=== PATIENT | female | born 1995 | race American Indian/Alaskan Native ===

== ENCOUNTER 2016-11-23 23:58 | Emergency (ER) | payer MEDICAID ==
[2016-11-24 01:00] LABS: Basophils % (Auto) 0.4 % (0.0-1.8); Hematocrit 39.7 % (30.3-42.9); Hemoglobin 13.8 gm/dl (10.1-14.3); Mean Corpuscular HGB Conc 35 % (30-34); Mean Corpuscular Hemoglobin 31 pg (28-32); Mean Corpuscular Volume 89 fl (79-97); Platelet Count 271 K/mm3 (140-440); Red Blood Count 4.44 M/mm3 (3.65-5.03); Red Cell Distribution Width 12.4 % (13.2-15.2); White Blood Count 13.7 K/mm3 (4.5-11.0)
[2016-11-24 01:14] LABS: Bacteria,Urine 2+ /HPF (Negative); Bilirubin,Urine NEG (Negative); Blood,Urine SM (Negative); Ketones,Urine TR mg/dL (Negative); Leukocyte Esterase,Urine LG (Negative); Mucus,Urine FEW /HPF; Nitrite,Urine POS (Negative); Urobilinogen,Urine < 2.0 mg/dL (<2.0)
[2016-11-24 01:15] LABS: WBC,Urine > 182.0 /HPF (0.0-6.0)
[2016-11-24 01:21] LABS: Alanine Aminotransferase 20 units/L (7-56); Albumin 4.5 g/dL (3.9-5); Alkaline Phosphatase 70 units/L (35-129); Anion Gap 22 mmol/L; Blood Urea Nitrogen 8 mg/dL (7-17); Calcium 9.5 mg/dL (8.4-10.2); Carbon Dioxide 23 mmol/L (22-30); Chloride 93.1 mmol/L (98-107); Glucose 120 mg/dL (65-100); Lipase 17 units/L (13-60); Potassium 3.6 mmol/L (3.6-5.0); Sodium 134 mmol/L (137-145); Total Protein 8.8 g/dL (6.3-8.2)
[2016-11-24] MEDS ORDERED: TORADOL IV ONE (01:38)
[2016-11-24] MEDS ORDERED: NACL 0.9% 1000 ML 1,000 ML IV ONE (01:38)
[2016-11-24] MEDS ORDERED: ZOFRAN IV ONE (01:38)
[2016-11-24] MEDS ORDERED: ROCEPHIN/NS 1 GM/50 ML 1 GM/50 ML BAG IV ONE (01:38)
--- NOTE | 2016-11-24 02:04 | Emergency Department Report ---
HPI - General Chief Complaint: Abdominal Pain Time Seen by Provider: 11/24/16 01:32 - HPI HPI: Room 24 The patient is a 21-year-old female presenting with a chief complaint bilateral flank pain. The patient states her symptoms began 3 days ago with left flank pain. Coughs is both flanks and she complains of throbbing diffuse abdominal pain. Patient denies dysuria or hematuria. Patient denies fever. Patient admits to nausea vomiting and denied having constipation. Patient states she took a liquid laxative yesterday evening though she was not constipated because she believed it would help her pain. The patient states she developed loose stools after taking the laxative. Location: Bilateral flanks Duration: 3 Days Quality: Throbbing Severity: Moderate Modifying factors: [see above] Context: [see above] Mode of transportation: The patient drove herself to the emergency department and there are no visitors present ED Past Medical Hx - Past Medical History Previous Medical History?: No - Surgical History Past Surgical History?: No - Family History Family history: no significant - Social History Smoking Status: Never Smoker Substance Use Type: None (denies illicit drug use) - Medications Home Medications: Home Medications Medication Instructions Recorded Confirmed Last Taken Type metroNIDAZOLE [Flagyl] 500 mg PO BID #14 tablet 11/16/14 Unknown Rx Nitrofurantoin [place]/M-Cryst 100 mg PO Q12HR #14 capsule 04/18/15 Unknown Rx [Macrobid CAP] Promethazine [Phenergan TAB] 25 mg PO Q8HR PRN #21 tab 04/18/15 Unknown Rx Ciprofloxacin HCl [Ciprofloxacin 500 mg PO Q12HR #20 tab 11/24/16 Unknown Rx TAB] HYDROcodone/APAP 5-325 [[place] 1 - 2 each PO Q6HR PRN #14 tablet 11/24/16 Unknown Rx 5/325] Ibuprofen [Motrin 800 MG tab] 800 mg PO Q8HR PRN #20 tablet 11/24/16 Unknown Rx Promethazine [Phenergan TAB] 25 mg PO Q6HR PRN #20 tab 11/24/16 Unknown Rx Promethazine [Phenergan] 25 mg LA Q6HR PRN #5 supp.rect 11/24/16 Unknown Rx ED Review of Systems ROS: Stated complaint: ABD PAIN, BACK PAIN, HEADACHE Other details as noted in HPI Comment: All other systems reviewed and negative Constitutional: denies: chills, fever Eyes: denies: eye pain, eye discharge, vision change ENT: denies: ear pain, throat pain Respiratory: denies: cough, shortness of breath, wheezing Cardiovascular: denies: chest pain, palpitations Endocrine: no symptoms reported Gastrointestinal: abdominal pain, nausea, vomiting. denies: constipation Genitourinary: denies: urgency, dysuria, discharge Musculoskeletal: denies: back pain, joint swelling, arthralgia Skin: denies: rash, lesions Neurological: denies: headache, weakness, paresthesias Psychiatric: denies: anxiety, depression Hematological/Lymphatic: denies: easy bleeding, easy bruising Physical Exam - Physical Exam Vital Signs: Vital Signs 11/24/16 00:25 Temperature 98.8 F Pulse Rate 99 H Respiratory 14 Rate Blood Pressure 125/89 [Right] O2 Sat by Pulse 99 Oximetry Physical Exam: GENERAL: The patient is well-developed well-nourished female lying on stretcher not appearing to be in acute distress. [] HEENT: Normocephalic. Atraumatic. Extraocular motions are intact. Patient has moist mucous membranes. NECK: Supple. Trachea midline CHEST/LUNGS: Clear to auscultation. There is no respiratory distress noted. HEART/CARDIOVASCULAR: Regular. There is no tachycardia. There is no gallop rub or murmur. ABDOMEN: Abdomen is soft, without tenderness to palpation in the left upper quadrant, left lower quadrant or right lower quadrant. There is mild discomfort to palpation in the right upper quadrant. Patient has normal bowel sounds. There is no abdominal distention. SKIN: There is no rash. There is no edema. There is no diaphoresis. NEURO: The patient is awake, alert, and oriented. The patient is cooperative. The patient has normal speech MUSCULOSKELETAL: There is bilateral CVA tenderness. There is no evidence of acute injury. ED Course Vital Signs 11/24/16 00:25 Temperature 98.8 F Pulse Rate 99 H Respiratory 14 Rate Blood Pressure 125/89 [Right] O2 Sat by Pulse 99 Oximetry ED Medical Decision Making - Lab Data Result diagrams: 11/24/16 00:44 11/24/16 00:44 Laboratory Tests 11/24/16 11/24/16 11/24/16 00:44 00:44 00:44 WBC 13.7 H RBC 4.44 Hgb 13.8 Hct 39.7 MCV 89 MCH 31 MCHC 35 H RDW 12.4 L Plt Count 271 Lymph % (Auto) 4.3 L [place] % (Auto) 9.5 H Eos % (Auto) 0.0 Baso % (Auto) 0.4 Lymph # 0.6 L [place] # 1.3 H Eos # 0.0 Baso # 0.0 Seg Neutrophils % 85.8 H Seg Neutrophils # 11.7 H Sodium 134 L Potassium 3.6 Chloride 93.1 L Carbon Dioxide 23 Anion Gap 22 BUN 8 Creatinine 0.5 L Estimated GFR > 60 BUN/Creatinine Ratio 16.00 Glucose 120 H Calcium 9.5 Total Bilirubin 0.50 AST 12 ALT 20 Alkaline Phosphatase 70 Total Protein 8.8 H Albumin 4.5 Albumin/Globulin Ratio 1.0 Lipase 17 HCG, Qual Negative Urine Color Urine Turbidity Urine pH Ur Specific [place] Urine Protein Urine Glucose (UA) Urine Ketones Urine Blood Urine Nitrite Urine Bilirubin Urine Urobilinogen Ur Leukocyte Esterase Urine WBC (Auto) Urine RBC (Auto) U Epithel Cells (Auto) Urine Bacteria (Auto) Urine WBC Clumps Urine Mucus 11/24/16 00:46 WBC RBC Hgb Hct MCV MCH MCHC RDW Plt Count Lymph % (Auto) [place] % (Auto) Eos % (Auto) Baso % (Auto) Lymph # [place] # Eos # Baso # Seg Neutrophils % Seg Neutrophils # Sodium Potassium Chloride Carbon Dioxide Anion Gap BUN Creatinine Estimated GFR BUN/Creatinine Ratio Glucose Calcium Total Bilirubin AST ALT Alkaline Phosphatase Total Protein Albumin Albumin/Globulin Ratio Lipase HCG, Qual Urine Color Yellow Urine Turbidity Cloudy Urine pH 6.0 Ur Specific [place] 1.015 Urine Protein 100 mg/dl Urine Glucose (UA) Neg Urine Ketones Tr Urine Blood Sm Urine Nitrite Pos Urine Bilirubin Neg Urine Urobilinogen < 2.0 Ur Leukocyte Esterase Lg Urine WBC (Auto) > 182.0 H Urine RBC (Auto) 9.0 U Epithel Cells (Auto) 2.0 Urine Bacteria (Auto) 2+ Urine WBC Clumps 2+ Urine Mucus Few - Differential Diagnosis pyelonephritis, GERD, muscle strain, Critical care attestation.: If time is entered above; I have spent that time in minutes in the direct care of this critically ill patient, excluding procedure time. ED Disposition Clinical Impression: Acute pyelonephritis, Bilateral flank pain, Nausea and vomiting, Leukocytosis Disposition: [id number] TO HOME OR SELFCARE Is pt being admited?: No Does the pt Need Aspirin: No Condition: Stable Instructions: Abdominal Pain (ED), Acute Pyelonephritis (ED), Flank Pain (ED) Additional Instructions: Return to the emergency department immediately should you develop worsening symptoms, fever, inability to tolerate food or liquid or any other concerns. Prescriptions: Ciprofloxacin HCl [Ciprofloxacin TAB] 500 mg PO Q12HR #20 tab HYDROcodone/APAP 5-325 [[place] 5/325] 1 - 2 each PO Q6HR PRN #14 tablet PRN Reason: Pain Ibuprofen [Motrin 800 MG tab] 800 mg PO Q8HR PRN #20 tablet PRN Reason: Pain Promethazine [Phenergan TAB] 25 mg PO Q6HR PRN #20 tab PRN Reason: Nausea Promethazine [Phenergan] 25 mg LA Q6HR PRN #5 supp.rect PRN Reason: Vomiting Referrals: PRIMARY CAREMD [Primary Care Provider] - 3-5 Days ANASTASIYA GUZMÁN MD [Staff Physician] - 3-5 Days Time of Disposition: 02:11
[2016-11-24 03:12] VITALS: BP 122/79
== END 2016-11-24 03:00 | disposition home or self-care (01) ==
LOC: ED 23:58
DX: N10 Acute pyelonephritis (principal); D72.829 Elevated white blood cell count, unspecified; R11.2 Nausea with vomiting, unspecified; R10.9 Unspecified abdominal pain
CPT/HCPCS: 36415; 80053; 81001; 83690; 84703; 85025; 87076; 87086; 87186; 96365; 96375; 99283; J0696; J1885; J2405; J7030